=== PATIENT | male | born 1985 ===

== ENCOUNTER 2017-03-23 13:26 | Outpatient (CLI) | payer BC ==
--- NOTE | 2017-03-23 16:40 | Diagnostic Imaging Report ---
Indication:Scrotal pain Technique: Real time grayscale and duplex Doppler imaging of the scrotum performed. Comparison: None Findings: The size and contour of the testis appear normal bilaterally. Extensive round echogenic foci noted within the testes bilaterally consistent with microlithiasis. Right testis measures 3.6 x 2.1 x 3.0 cm. Left testis 3.6 x 2.0 x 3.2 cm. There is no testicular mass or evidence of torsion. There is good doppler evidence of blood flow within both testes. Epididimi are unremarkable. Impression: Testicular microlithiasis
== END 2017-03-23 15:26 | disposition home or self-care (01) ==
LOC: ULS 13:26
DX: N50.89 Other specified disorders of the male genital organs (principal)
CPT/HCPCS: 76870